=== PATIENT | male | born 1985 | race Two or more races ===

== ENCOUNTER 2022-10-26 22:45 | Inpatient (IN) | payer OTHER ==
[~2022-10-26] VITALS: Ht 160 cm; Wt 70.0 kg
[2022-10-26] MEDS ORDERED: NALOXONE HCL 1MG/ML 2ML SYRINGE IV ONE (23:15)
[2022-10-26 23:45] LABS: Basophils # (auto) 0 10 ^3/uL (0-0.2); Basophils % (auto) 0.5 % (0.0-2.0); Eosinophils # (auto) 0.1 10 ^3/uL (0-0.8); Eosinophils % (auto) 0.7 % (0.0-7.0); Hematocrit 41.4 % (41.0-53.0); Lymphocytes # (auto) 0.8 10 ^3/uL (0.4-5.4); Mean Corpuscular Hemoglobin 28.5 pg (28.0-32.0); Mean Corpuscular Hgb Conc. 33.7 g/dL (32.0-36.0); Mean Corpuscular Volume 84.5 fL (80.0-100.0); Monocytes # (auto) 0.5 10 ^3/uL (0-1.3); Monocytes % (auto) 5.2 % (0.0-12.0); Neutrophils # (auto) 7.4 10 ^3/uL (1.6-8.6); Neutrophils % (auto) 84.6 % (37.0-80.0); Nucleated Red Blood Cells % 0.1 %; Red Cell Distribution Width 14.9 % (11.8-14.3); White Blood Cell 8.7 10^3/uL (4.4-10.8)
[2022-10-26 23:59] LABS: INR 0.94 (0.9-1.15); Partial Thromboplastin Time 26.4 sec (24.6-33.4)
[2022-10-27 00:01] LABS: Alanine Aminotransferase 36 U/L (16-61); Albumin 3.9 g/dL (3.4-5.0); Anion Gap 8 (5-15); Aspartate Aminotransferase 32 U/L (15-37); Blood Urea Nitrogen 28 mg/dL (7-18); Calcium 9.4 mg/dL (8.5-10.1); Carbon Dioxide 25 mmol/L (21-32); Chloride 110 mmol/L (98-107); GFR African American 109 mL/min; GFR Non-African American 90 mL/min; Glucose 133 mg/dL (74-106); Magnesium 2.3 mg/dL (1.6-2.6); Potassium 3.6 mmol/L (3.5-5.1); Sodium 143 mmol/L (136-145)
[2022-10-27 00:03] LABS: Alkaline Phosphatase 114 U/L (45-117); Bilirubin, Total 0.2 mg/dL (0.2-1.0); Total Protein 7.9 g/dL (6.4-8.2)
[2022-10-27 00:04] LABS: Blood Alcohol < 3.0 mg/dL (0-5)
[2022-10-27] MEDS ORDERED: PIPERACILLIN-TAZOB 3.375GM 100 ML IV ONE ×2 (01:00)
[2022-10-27] MEDS ORDERED: NALOXONE HCL 2 MG in DEXTROSE 495 ML IV ONE (01:00)
[2022-10-27] MEDS ORDERED: ONDANSETRON HCL 4 MG/2 ML VIAL IV PRN (01:30)
[2022-10-27 01:44] LABS: Salicylate < 1.7 mg/dL (2.8-20.0)
[2022-10-27] MEDS ORDERED: SOD CHL 0.45% 1,000 ML IV SCH (01:45)
[2022-10-27 01:46] LABS: Acetaminophen < 2.0 ug/mL (10-30)
[2022-10-27 07:01] LABS: Basophils # (auto) 0 10 ^3/uL (0-0.2); Basophils % (auto) 0.6 % (0.0-2.0); Eosinophils # (auto) 0 10 ^3/uL (0-0.8); Eosinophils % (auto) 0.7 % (0.0-7.0); Hemoglobin 13.5 g/dL (13.5-17.5); Lymphocytes # (auto) 1.2 10 ^3/uL (0.4-5.4); Lymphocytes % (auto) 22.9 % (10.0-50.0); Mean Corpuscular Hemoglobin 28.4 pg (28.0-32.0); Mean Corpuscular Hgb Conc. 33.6 g/dL (32.0-36.0); Mean Corpuscular Volume 84.5 fL (80.0-100.0); Monocytes # (auto) 0.4 10 ^3/uL (0-1.3); Monocytes % (auto) 8.5 % (0.0-12.0); Neutrophils # (auto) 3.5 10 ^3/uL (1.6-8.6); Neutrophils % (auto) 67.3 % (37.0-80.0); Nucleated Red Blood Cells % 0.1 %; Red Blood Cells 4.74 10^6/uL (4.5-5.90); Red Cell Distribution Width 15.2 % (11.8-14.3); White Blood Cell 5.2 10^3/uL (4.4-10.8)
[2022-10-27] MEDS ORDERED: MORPHINE SULFATE INJ 2 MG/ml SYRG IV PRN (07:15)
[2022-10-27] MEDS ORDERED: NITROGLYCERIN 0.4 MG SL TAB SL PRN (07:15)
[2022-10-27 07:46] LABS: Albumin 3.8 g/dL (3.4-5.0); Calcium 8.4 mg/dL (8.5-10.1); Potassium 3.9 mmol/L (3.5-5.1)
[2022-10-27 07:51] LABS: BUN/Creatinine Ratio 26.5 (10.0-20.0); Bilirubin, Total 0.5 mg/dL (0.2-1.0); Total Protein 7.5 g/dL (6.4-8.2)
[2022-10-27] MEDS ORDERED: AZITHROMYCIN 500MG/ 250ML 250 ML IV SCH (10:00)
[2022-10-27] MEDS ORDERED: FAMOTIDINE (10MG/ML) 2ML VL IV SCH (10:00)
[2022-10-27 12:00] VITALS: BP 115/79
== END 2022-10-27 13:09 | disposition left against medical advice (07) | DRG 812 ==
LOC: EDBD 22:45 → ER 22:45 → TELE 10-27 07:16
PROVIDERS: ADMIT Nurse Practitioner Family; ATTEND Nurse Practitioner Family
DX: T50.901A Poisoning by unspecified drugs, medicaments and biological substances, accidental (unintentional), initial encounter (principal); J18.9 Pneumonia, unspecified organism; R73.9 Hyperglycemia, unspecified; E86.0 Dehydration; R26.81 Unsteadiness on feet; Y92.89 Other specified places as the place of occurrence of the external cause
CPT/HCPCS: 36415; 80053; 80320; 80329; 83605; 83735; 84484; 85025; 85610; 85730; 87040; 93005; 96365; 96366; G0378; J2543; J3490